=== PATIENT | male | born 1990 | race Hispanic/Latino ===

== ENCOUNTER 2018-05-18 04:15 | Emergency (ER) | payer OTHER ==
[2018-05-18] MEDS ORDERED: SODIUM CHLORIDE 0.9% 1000ML 1,000 ML IV ONE (05:16)
[2018-05-18] MEDS ORDERED: CLINDAMYCIN 300 MG/D5W 50 ML 50 ML IV ONE (05:16)
[2018-05-18] MEDS ORDERED: CLINDAMYCIN 600 MG/D5% WATER 50 ML IV ONE (05:16)
[2018-05-18] MEDS ORDERED: KETOROLAC TROMETHAMINE 30MG/ML ONE (05:16)
[2018-05-18 05:22] LABS: BASOPHILS % (AUTO) 0.4 % (0.0-5.0); EOSINOPHILS % (AUTO) 0.6 % (0.0-8.0); HEMATOCRIT 43.4 % (42-54); LYMPHOCYTES % (AUTO) 14.2 % (21.0-51.0); MEAN CORPUSCULAR HGB CONC 34.1 g/dL (32.0-36.0); MONOCYTES % (AUTO) 6.5 % (3.0-13.0); NEUTROPHILS % (AUTO) 78.3 % (40.0-77.0); PLATELET COUNT (AUTO) 398 K/uL (130-400); RED BLOOD CELL COUNT(AUTO) 5.29 MIL/uL (4.50-6.20); RED CELL DISTRIBUTION WIDTH 12.8 % (11.0-15.5); WHITE BLOOD COUNT (AUTO) 19.1 K/uL (4.8-10.8)
[2018-05-18 05:29] LABS: CREATININE 0.8 mg/dL (0.5-1.5); POTASSIUM 3.7 mmol/L (3.5-5.1)
[2018-05-18 05:35] LABS: ALBUMIN 3.7 g/dL (3.5-5.0); BILIRUBIN,TOTAL 0.3 mg/dL (0.2-1.0); TOTAL PROTEIN, SERUM 8.3 g/dL (6.0-8.3)
== END 2018-05-18 07:56 | disposition home or self-care (01) ==
LOC: EDH 04:15
DX: L02.811 Cutaneous abscess of head [any part, except face] (principal); L73.9 Follicular disorder, unspecified
CPT/HCPCS: 36415; 80053; 82948; 83605; 85025; 87040; 87070; 87076; 87077; 87186; 96365; 96375; 99283; J1885; J3490 ×2; J7030

== ENCOUNTER 2020-01-01 06:56 | Emergency (ER) | payer SELFPAY ==
[2020-01-01] MEDS ORDERED: SODIUM CHLORIDE 0.9% 1000ML 1,000 ML IV ONE (07:28)
[2020-01-01] MEDS ORDERED: KETOROLAC TROMETHAMINE 30MG/ML ONE (07:28)
[2020-01-01] MEDS ORDERED: ONDANSETRON HCL 4 MG/2 ML VIAL ONE (07:28)
[2020-01-01] MEDS ORDERED: MORPHINE SULFATE 4 MG/1ML SYG ONE ×2 (07:29→08:08)
[2020-01-01 07:32] LABS: BASOPHILS % (AUTO) 0.4 % (0.0-5.0); EOSINOPHILS % (AUTO) 0.8 % (0.0-8.0); HEMATOCRIT 43.1 % (42-54); LYMPHOCYTES % (AUTO) 18.4 % (21.0-51.0); MEAN CORPUSCULAR HEMOGLOBIN 27.2 pg (27.0-33.0); MEAN CORPUSCULAR HGB CONC 34.1 g/dL (32.0-36.0); MEAN CORPUSCULAR VOLUME 79.7 fL (79-99); MONOCYTES % (AUTO) 6.1 % (3.0-13.0); NEUTROPHILS % (AUTO) 73.2 % (40.0-77.0); PLATELET COUNT (AUTO) 318 K/uL (130-400); RED BLOOD CELL COUNT(AUTO) 5.41 MIL/uL (4.50-6.20); RED CELL DISTRIBUTION WIDTH 12.6 % (11.0-15.5); WHITE BLOOD COUNT (AUTO) 9.1 K/uL (4.8-10.8)
[2020-01-01 07:43] LABS: ALBUMIN 3.8 g/dL (3.5-5.0); BILIRUBIN,TOTAL 0.2 mg/dL (0.2-1.0); CREATININE 0.9 mg/dL (0.5-1.5); POTASSIUM 3.7 mmol/L (3.5-5.1); TOTAL PROTEIN, SERUM 7.8 g/dL (6.0-8.3)
[2020-01-01] MEDS ORDERED: HYDROMORPHONE 1 MG/1 ML AMP ONE (08:45)
[2020-01-01 09:13] LABS: APPEARANCE,URINE Clear (CLEAR); BILIRUBIN,URINE Negative (NEGATIVE); COLOR,URINE Yellow (YELLOW); GLUCOSE, URINE (UA) >=1000 mg/dL (NEGATIVE); KETONES,URINE Negative (NEGATIVE); LEUKOCYTE ESTERASE ,URINE Negative (NEGATIVE); NITRATE,URINE Negative (NEGATIVE); OCCULT BLOOD,URINE Small (NEGATIVE); PROTEIN,URINE Negative (NEGATIVE); UROBILINOGEN,URINE 0.2 mg/dL (0.2-1.0)
[2020-01-01 09:19] LABS: BACTERIA,URINE Rare /HPF (None Seen); SQUAMOUS EPITHELIAL CELL,UR Rare /HPF (0-2); WBC,URINE 0-1 /HPF (0-1)
== END 2020-01-01 10:18 | disposition home or self-care (01) ==
LOC: EDH 06:56
DX: N20.1 Calculus of ureter (principal); E11.65 Type 2 diabetes mellitus with hyperglycemia
CPT/HCPCS: 36415; 74176; 80053; 81001; 83690; 85025; 96361; 96374; 96375; 96376; 99284; J1170; J1885; J2270 ×2; J2405; J7030

== ENCOUNTER 2022-01-06 09:09 | Emergency (ER) | payer OTHER ==
[~2022-01-06] VITALS: Ht 175.3 cm; Wt 99.8 kg
[2022-01-06 09:11] VITALS: BP 144/50
[2022-01-06 10:13] LABS: BASOPHILS % (AUTO) 0.3 % (0.0-5.0); EOSINOPHILS % (AUTO) 4.3 % (0.0-8.0); HEMATOCRIT 45.4 % (42-54); LYMPHOCYTES % (AUTO) 15.7 % (21.0-51.0); MEAN CORPUSCULAR HEMOGLOBIN 27.3 pg (27.0-33.0); MEAN CORPUSCULAR HGB CONC 33.9 g/dL (32.0-36.0); MEAN CORPUSCULAR VOLUME 80.4 fL (79-99); MONOCYTES % (AUTO) 7.1 % (3.0-13.0); PLATELET COUNT (AUTO) 351 K/uL (130-400); RED BLOOD CELL COUNT(AUTO) 5.65 MIL/uL (4.50-6.20); RED CELL DISTRIBUTION WIDTH 12.4 % (11.0-15.5); WHITE BLOOD COUNT (AUTO) 11.5 K/uL (4.8-10.8)
[2022-01-06 10:32] LABS: CREATININE 0.7 mg/dL (0.5-1.5); POTASSIUM 3.9 mmol/L (3.5-5.1)
[2022-01-06 10:36] LABS: ALBUMIN 3.3 g/dL (3.5-5.0); TOTAL PROTEIN, SERUM 7.8 g/dL (6.0-8.3)
[2022-01-06] MEDS ORDERED: CLIN-116 PO (11:54)
[2022-01-06] MEDS ORDERED: IBUP-1493 PO (11:54)
== END 2022-01-06 12:08 | disposition home or self-care (01) ==
LOC: EDH 09:09
DX: K04.7 Periapical abscess without sinus (principal); E11.9 Type 2 diabetes mellitus without complications; F17.200 Nicotine dependence, unspecified, uncomplicated; Z88.0 Allergy status to penicillin
CPT/HCPCS: 36415; 70486; 80053; 82550; 83605; 84484; 85025; 87040

== ENCOUNTER 2024-04-04 09:51 | Emergency (ER) | payer SELFPAY ==
[~2024-04-04] VITALS: Ht 175.3 cm; Wt 104.3 kg
[~2024-04-04 09:51] MED LIST: CLIN-116 PO; IBUP-1493 PO
--- NOTE | 2024-04-04 10:06 | ERN ---
ED Note History of Present Illness Stated Complaint: VOMITING Chief Complaint: Nausea,Vomiting,Diarrhea Time Seen by MD: 10:03 Dictation: PATIENT IS A 34-YEAR-OLD MALE COMING IN WITH HIS FATHER WITH COMPLAINTS OF NAUSEA VOMITING ONSET THIS MORNING AT 08:00. HE STATES I SMOKE A LOT OF POT AND I SMOKED LAST NIGHT. NO ABDOMINAL PAIN NO CHEST PAIN NO BACK PAIN. NO PRIMARY CARE DOCTOR LAST MARIJUANA INGESTION WAS BEFORE MIDNIGHT YESTERDAY. HE SAID HE HAS DONE THIS BEFORE Allergies: Coded Allergies: Penicillins (Unverified Allergy, Unknown, 01/06/22) Home Meds Active Scripts Metformin HCl (Metformin HCl) 500 Mg Tablet, 1 TAB PO BID for 30 Days, #60 TAB 0 Refills Prov:MICAELA REICH AIRCRAFT ENGINE INSTALLER 04/04/24 Ondansetron (Ondansetron Odt) 4 Mg Tab.rapdis, 4 MG PO Q6HPRN PRN for nausea, #16 TAB 0 Refills Prov:MICAELA REICH [employer]CRAFT ENGINE INSTALLER 04/04/24 Ibuprofen (Motrin/Advil) 800 Mg Tab, 800 MG PO TID, #30 TAB Prov:HUNG SIMEON MD 01/06/22 Clindamycin HCl (Clindamycin HCl) 150 Mg Capsule, 150 MG PO QID, #28 CAP Prov:HUNG SIMEON MD 01/06/22 Past Medical History Past Medical History: No Pertinent History Additional Past Medical Hx: MRSA borderline diabetic, Surgical History: None Family History: HTN Social History: Smokers, Drugs, ETOH, Lives with family RN Note Reviewed/Agreed w/PFSH: Yes Review of System Dictation CONSTITUTIONAL: Negative except for HPI HEAD/FACE: Negative except for HPI EENT: Negative except for HPI RESPIRATORY: Negative except for HPI GASTROINTESTINAL/ABDOMINAL: Negative except for HPI nausea vomiting GENITOURINARY: Negative except for HPI MUSCULOSKELETAL: Negative except for HPI INTEGUMENTARY: Negative except for HPI NEUROLOGICAL/PSYCH: Negative except for HPI HEMATOLOGIC/LYMPHATIC: Negative except for HPI All Systems Negative, Except as noted above. 13 point review of systems assessed and all negative except for above. Initial Vital Sign VS Vital Signs Date Time Temp Pulse Resp B/P (MAP) Pulse Ox O2 Delivery O2 Flow Rate FiO2 04/04/24 09:52 98.6 82 22 147/79 100 Room Air 0 04/04/24 09:57 21 Physical Exam Dictation Vital Signs reviewed General Appearance: Alert, oriented x 3, moderate acute distress, well developed, nourished. Actively nauseated, retching during exam Head and Face: non-traumatic. Eyes: PERRL, pink conjunctivas, eyelid no trauma, anterior chamber with arcus senilis. Ears: Pinnas intact and no signs of trauma or erythema ear canals clear and no discharge TM no erythema Nose: No discharge, no bleeding. Oropharynx: Mouth normal, tongue pink, pharynx clear,no erythema, tonsils no exudates, no abscesses noted, mucous membrane moist Neck: Supple, non-tender, no thyromegaly, no masses, no JVD, no bruits Breast:Deferred Chest:No tenderness, no crepitus, no paradoxical movement, no retractions Lungs:Clear, well-ventilated, symmetric, no rales, no wheezing, no rhonchi, no stridor, good breath sounds bilaterally Heart: Regular rate, regular rhythm, no murmur, no gallops Vascular: no peripheral edema, Abdomen: Soft, positive bowel sounds, nondistended, no guarding, nontender, no rebound, no masses no hepatomegaly, no splenomegaly, no Retana's sign, no hernias. No focal tenderness Rectal: Deferred Genital: Deferred Neurological: Normal speech, motor function intact, sensory function intact Musculoskeletal: Neck nontender, full range of motion, back nontender, full range of motion, Extremities: nontender, full range of motion Skin: Color pink, dry, no turgor, no rash, no lacerations, no abrasions, no contusions. Lymphatic: Deferred Results (Laboratory/Radiology) Laboratory/Radiology Laboratory Tests Test 04/04/24 10:22 White Blood Count 14.1 K/uL (4.8-10.8) H Red Blood Count 5.52 MIL/uL (4.50-6.20) Hemoglobin 15.4 g/dL (14.0-18.0) Hematocrit 45.1 % (42-54) Mean Corpuscular Volume 81.7 fL (79-99) Mean Corpuscular Hemoglobin 27.9 pg (27.0-33.0) Mean Corpuscular Hemoglobin Concent 34.1 g/dL (32.0-36.0) Red Cell Distribution Width 12.5 % (11.0-15.5) Platelet Count 298 K/uL (130-400) Mean Platelet Volume 11.0 fL (7.5-10.5) H Immature Granulocyte % (Auto) 0.7 % (0-1) Neutrophils (%) (Auto) 78.1 % (40.0-77.0) H Lymphocytes (%) (Auto) 14.3 % (21.0-51.0) L Monocytes (%) (Auto) 5.8 % (3.0-13.0) Eosinophils (%) (Auto) 0.7 % (0.0-8.0) Basophils (%) (Auto) 0.4 % (0.0-5.0) Neutrophils # (Auto) 11.0 K/uL (1.8-7.7) H Lymphocytes # (Auto) 2.0 K/uL (1.0-4.8) Monocytes # (Auto) 0.8 K/uL (0.1-1.0) Eosinophils # (Auto) 0.10 K/uL (0.00-0.70) Basophils # (Auto) 0.05 K/uL (0.00-0.20) Absolute Immature Granulocyte (auto 0.10 K/uL (0-1) Nucleated Red Blood Cells 0.0 % (0.0-0.19) Sodium Level 139 mmol/L (136-145) Potassium Level 3.4 mmol/L (3.5-5.1) L Chloride Level 103 mmol/L (101-111) Carbon Dioxide Level 24 mmol/L (21-32) Blood Urea Nitrogen 9 mg/dL (7-18) Creatinine 0.8 mg/dL (0.5-1.3) Glomerular Filtration Rate Calc 121 mL/min (>90) Random Glucose 221 mg/dL (70-105) H Total Calcium 9.2 mg/dL (8.5-10.1) Labs Reviewed?: Yes ED Course ED Course Orders Procedure Category Date Status Time Cbc With Differential LAB 04/04/24 Complete 10:05 0.9%Nacl 1000ml (Ns PHA 04/04/24 Complete 1000ml) 10:30 Ondansetron 4mg Inj PHA 04/04/24 Complete (Zofran 4mg Inj) 10:30 Famotidine 20mg Vial PHA 04/04/24 Complete (Pepcid 20mg Vial) 10:30 Basic Metabolic Panel LAB 04/04/24 Complete 10:05 Metoclopramide 10 PHA 04/04/24 Logged Mg/2 Ml Vial (Reglan 1 12:00 Current Medications Medications (Trade) Dose Ordered Sig/Shruthi Route PRN Reason Start Time Stop Time Status Last Admin Dose Admin Famotidine (Pepcid 20mg Vial) 20 mg ONCE ONCE IV 04/04/24 10:30 04/04/24 10:31 DC 04/04/24 11:08 Ondansetron HCl (zoFRAN 4MG INJ) 4 mg ONCE ONCE IVP 04/04/24 10:30 04/04/24 10:31 DC 04/04/24 11:08 Sodium Chloride 1,000 ml @ 0 mls/hr ONCE ONCE IV 04/04/24 10:30 04/04/24 10:31 DC 04/04/24 11:08 Vital Signs Date Time Temp Pulse Resp B/P (MAP) Pulse Ox O2 Delivery O2 Flow Rate FiO2 04/04/24 11:02 98.6 74 18 136/89 99 Room Air* 0 21 04/04/24 09:57 98.6 82 22 147/79 100 Room Air* 0 21 04/04/24 09:52 98.6 82 22 147/79 100 Room Air 0 1107, SPOKE WITH PATIENT AT LENGTH AND HIS FATHER AT BEDSIDE REGARDING LAB FINDINGS. HE IS AWARE THAT HE HAS A BLOOD SUGAR OF 229 AND HAS A TYPE 2 DIABETIC UNTIL PROVEN OTHERWISE. STATES HE HAD BEEN TOLD IT OTHER ERS THAT HE IS BORDERLINE, I ASSURED HIM THAT HE WAS A DIABETIC AND THAT HE WOULD NEED TO FOLLOW UP WITH HIS PRIMARY CARE DOCTOR AND I WOULD PROVIDE A LIST FOR THAT TO PER PATIENT AND FATHER, PATIENT AND MOTHER ARE BOTH DIABETICS AND THERE IS A STRONG FAMILIAL HISTORY OF DIABETES IN THE FAMILY 1158, PATIENT NO LONGER HAVING NAUSEA VOMITING AT THIS TIME AFTER FLUIDS AND ZOFRAN. PATIENT HAS FATHER AT BEDSIDE PATIENT WAS STRONGLY ADVISED TO STOP USING MARIJUANA DUE TO CAN HAS BEEN ABUSE SYNDROME AND TO FOLLOW UP WITH THE [facility] CARE DOCTOR IN THE NEXT DAY OR TWO FROM THE LIST I HAVE PROVIDED HIM FOR MANAGEMENT OF HIS DIABETES. ALL QUESTIONS ANSWERED Medical Decision Making MDM MDM: DIFFERENTIAL DIAGNOSIS: NAUSEA VOMITING/CANNABIS ABUSE SYNDROME/UTI/ELECTROLYTE IMBALANCE/DEHYDRATION/DIABETES RATIONALE: TESTS CONSIDERED AND ORDERED SECONDARY TO SHARED DECISION MAKING INCLUDE: UA/LABS PREVIOUS OUTSIDE RECORDS REVIEWED: OLD ER VISITS. REVIEWED RISK OF COMPLICATION AND/OR MORBIDITY OR MORTALITY OF PATIENT MANAGEMENT: NONE MEDICATIONS-PER MEDICATION RECONCILIATION NEED FOR HOSPITALIZATION: PATIENT DOES NOT MEET CRITERIA FOR HOSPITALIZATION. NO NEED FOR EMERGENCY MAJOR/MINOR SURGERY: NO THERE ARE NO SOCIAL CONCERNS WITH THIS PATIENT. PRESCRIPTION DRUG MANAGEMENT ZOFRAN/METFORMIN PRESCRIPTIONS WILL INCLUDE SYMPTOMATIC CARE PATIENT'S PRIOR EXTERNAL MEDICAL RECORDS FROM OTHER ER VISITS WERE REVIEWED BY ME INDICATED. PRIOR TESTING AND RESULTS FROM PREVIOUS VISITS WERE REVIEWED. PRIOR TESTS WERE TAKEN INTO ACCOUNT WITH MEDICAL DECISION MAKING AND RESOURCE UTILIZATION, INDEPENDENT HISTORIAN/HISTORIANS WERE USED TO OBTAIN COMPLETE MEDICAL HISTORY. I INDEPENDENTLY INTERPRETED THE TEST THAT WERE PERFORMED, RESULTS WERE REVIEWED BY ME AND CONSIDERED FINDINGS ON RADIOLOGY IF ORDERED. MEDICAL MANAGEMENT AND EXAMINATION INTERPRETATION DISCUSSIONS WERE HAD BY ME WITH OTHER QUALIFIED HEALTHCARE PROFESSIONALS INDICATED FOR THE PATIENT'S CARE. DX & DISP Disposition: Discharge Departure Impression: Primary Impression: Cannabis hyperemesis syndrome concurrent with and due to cannabis abuse Additional Impression: Uncontrolled diabetes mellitus Condition: Stable Scripts Metformin HCl (Metformin HCl) 500 Mg Tablet 1 TAB PO BID for 30 Days, #60 TAB 0 Refills Prov: MICAELA REICH AIRCRAFT ENGINE INSTALLER 04/04/24 Ondansetron (Ondansetron Odt) 4 Mg Tab.rapdis 4 MG PO Q6HPRN PRN for nausea, #16 TAB 0 Refills Prov: MICAELA REICH AIRCRAFT ENGINE INSTALLER 04/04/24 Additional Instructions: FOLLOW-UP WITH PRIMARY CARE PROVIDER IN 1 TO 2 DAYS. TAKE MEDICATIONS DIRECTED HERE IN THE EMERGENCY ROOM. OKAY TO CONTINUE HOME MEDICATIONS UNLESS OTHERWISE DISCUSSED DURING YOUR VISIT IN THE EMERGENCY ROOM TODAY. RETURN TO YOUR NEAREST EMERGENCY ROOM IF SYMPTOMS WORSEN OR IF THERE IS NO IMPROVEMENT. CALL 911 IF YOU NEED IMMEDIATE ASSISTANCE. TAKE TYLENOL OR MOTRIN [id number] NEEDED AND IF NO CONTRAINDICATIONS ARE PRESENT. INCREASE ORAL HYDRATION. A WOUND CULTURE OR URINE CULTURE WAS ORDERED HERE IN THE EMERGENCY ROOM DEPARTMENT PLEASE FOLLOW-UP WITH PRIMARY CARE PROVIDER AND ADVISE THEM TO GET REPEAT PORTS FROM OUR FACILITY. IF YOU HAD ANY HANG WRAP/SPLINTS THAT WERE APPLIED HERE, PLEASE DO NOT REMOVE THEM UNTIL YOU SEE YOUR PRIMARY CARE OR SPECIALTY. STOP USING MARIJUANA. STOP ALL ILLEGAL DRUGS AND ALCOHOL. TAKE A WARM SHOWER WHEN YOU GET HOME WHEN YOUR FEELING NAUSEATED. FOLLOW UP WITH ONE OF THE DOCTORS ON THE LIST PROVIDED YOU IN THE NEXT 1-2 DAYS AND TAKE METFORMIN TWICE A DAY DIRECTED WITH FOOD FOR YOUR NEW ONSET DIABETES. Referrals: SELF,REFERRAL (PCP) Time of Disposition: 11:58 I have reviewed the case, and I agree with, Diagnosis and Plan MICAELA REICH NP Apr 04, 2024 10:06
[2024-04-04 10:29] LABS: BASOPHILS # (AUTO) 0.05 K/uL (0.00-0.20); BASOPHILS % (AUTO) 0.4 % (0.0-5.0); EOSINOPHILS % (AUTO) 0.7 % (0.0-8.0); HEMATOCRIT 45.1 % (42-54); LYMPHOCYTES % (AUTO) 14.3 % (21.0-51.0); MEAN CORPUSCULAR HEMOGLOBIN 27.9 pg (27.0-33.0); MEAN CORPUSCULAR HGB CONC 34.1 g/dL (32.0-36.0); MEAN CORPUSCULAR VOLUME 81.7 fL (79-99); MONOCYTES # (AUTO) 0.8 K/uL (0.1-1.0); MONOCYTES % (AUTO) 5.8 % (3.0-13.0); NEUTROPHILS % (AUTO) 78.1 % (40.0-77.0); PLATELET COUNT (AUTO) 298 K/uL (130-400); RED BLOOD CELL COUNT(AUTO) 5.52 MIL/uL (4.50-6.20); RED CELL DISTRIBUTION WIDTH 12.5 % (11.0-15.5); WHITE BLOOD COUNT (AUTO) 14.1 K/uL (4.8-10.8)
[2024-04-04 10:37] LABS: CREATININE 0.8 mg/dL (0.5-1.3); POTASSIUM 3.4 mmol/L (3.5-5.1)
[2024-04-04] MEDS: ondanSETRON 4MG INJ IVP ONE (11:08)
[2024-04-04] MEDS: 0.9%NACL 1000ML 1,000 ML IV ONE (11:08)
[2024-04-04] MEDS: FAMOTIDINE 20MG VIAL IV ONE (11:08)
[2024-04-04] MEDS ORDERED: ONDA-243 PO (12:00)
[2024-04-04] MEDS ORDERED: METF-444 PO (12:00)
[2024-04-04] MEDS: metoCLOPRAmide 10 MG/2 ML VIAL IVP ONE (12:07)
[2024-04-04 12:27] VITALS: BP 125/71; PULSE 84; RESP 18; TEMP 98.6; O2SAT 98
== END 2024-04-04 12:30 | disposition home or self-care (01) ==
LOC: EDH 09:51
DX: E11.65 Type 2 diabetes mellitus with hyperglycemia (principal); R11.10 Vomiting, unspecified; F12.10 Cannabis abuse, uncomplicated; F17.200 Nicotine dependence, unspecified, uncomplicated; Z79.1 Long term (current) use of non-steroidal anti-inflammatories (NSAID); Z79.84 Long term (current) use of oral hypoglycemic drugs; Z86.14 Personal history of Methicillin resistant Staphylococcus aureus infection; Z88.0 Allergy status to penicillin
CPT/HCPCS: 99284; 96374; 96375; 96361; 80048; 85025; 36415; J3490; J7030; J2405; J2765